=== PATIENT | female | born 1995 | race Caucasian/White ===

== ENCOUNTER 2017-12-05 09:16 | Emergency (ER) | payer BC ==
[~2017-12-05] VITALS: Ht 170.2 cm; Wt 113.4 kg
[~2017-12-05 09:16] MED LIST: HYDR-552 PO; LORA-258 PO; NORE1PAT7 TD; RIVA15TA PO
[2017-12-05] MEDS ORDERED: RIVA10TA PO (09:32)
--- NOTE | 2017-12-05 09:40 | NUR ---
PT.WAS SEEN BY DO:MEAGAN,FAMILY MEMBER AT BEDSIDE.
[2017-12-05 09:54] LABS: BASOPHILS % (AUTO) 0.2 % (0.0-2.0); EOSINOPHILS # (AUTO) 0.2 K/uL (0.0-0.7); EOSINOPHILS % (AUTO) 1.6 % (0.0-7.0); HEMATOCRIT 41.5 % (31.2-41.9); HEMOGLOBIN 13.8 g/dL (10.9-14.3); LYMPHOCYTES # (AUTO) 2.3 K/uL (20.0-40.0); LYMPHOCYTES % (AUTO) 24.1 % (20.5-51.5); MEAN CORPUSCULAR HEMOGLOBIN 27.8 uug (24.7-32.8); MEAN CORPUSCULAR HGB CONC 33 g/dL (32.3-35.6); MEAN CORPUSCULAR VOLUME 83.8 fL (75.5-95.3); MONOCYTES # (AUTO) 0.4 K/uL (2.0-10.0); MONOCYTES % (AUTO) 4.4 % (0.0-11.0); NEUTROPHILS # (AUTO) 6.6 K/uL (1.8-8.9); NEUTROPHILS % (AUTO) 69.7 % (38.5-71.5); PLATELET COUNT (AUTO) 235 K/uL (179-408); RED BLOOD CELL COUNT(AUTO) 4.95 MIL/uL (3.63-4.92); WHITE BLOOD COUNT (AUTO) 9.4 K/uL (3.8-11.8)
[2017-12-05 10:01] LABS: CREATININE 0.7 mg/dL (0.6-1.3); POTASSIUM 4.7 mmol/L (3.5-5.1)
[2017-12-05 10:12] LABS: BILIRUBIN,TOTAL 0.2 mg/dL (0.2-1.0); TOTAL PROTEIN, SERUM 8.6 g/dL (6.4-8.2)
[2017-12-05 10:36] VITALS: BP 112/68
== END 2017-12-05 10:40 | disposition home or self-care (01) ==
LOC: ER 09:16
DX: K92.0 Hematemesis (principal); E03.9 Hypothyroidism, unspecified; H69.90 Unspecified Eustachian tube disorder, unspecified ear; F17.200 Nicotine dependence, unspecified, uncomplicated
CPT/HCPCS: 36415; 85025; A4663

== ENCOUNTER 2019-11-18 22:55 | Inpatient (IN) | payer BC ==
[~2019-11-18] VITALS: Ht 170.2 cm; Wt 104.3 kg
[~2019-11-18 22:55] MED LIST changes: -HYDR-552 PO; -NORE1PAT7 TD; +RIVA10TA PO; -RIVA15TA PO
[2019-11-18] MEDS ORDERED: LEVO75TA7 PO (23:03)
[2019-11-18] MEDS ORDERED: ONDANSETRON 4 MG/2 ML VIAL IV ONE ×2 (23:15→23:45)
[2019-11-18] MEDS ORDERED: ONDANSETRON 4 MG/2 ML VIAL ONE ×2 (23:18→23:39)
[2019-11-18 23:37] LABS: BASOPHILS # (AUTO) 0.1 K/uL (0.0-8.0); BASOPHILS % (AUTO) 0.4 % (0.0-2.0); EOSINOPHILS # (AUTO) 0.2 K/uL (0.0-0.7); EOSINOPHILS % (AUTO) 1.3 % (0.0-7.0); HEMATOCRIT 40.3 % (31.2-41.9); HEMOGLOBIN 13.2 g/dL (10.9-14.3); LYMPHOCYTES # (AUTO) 2.7 K/uL (20.0-40.0); LYMPHOCYTES % (AUTO) 20.7 % (20.5-51.5); MEAN CORPUSCULAR HEMOGLOBIN 28.2 uug (24.7-32.8); MEAN CORPUSCULAR HGB CONC 33 g/dL (32.3-35.6); MEAN CORPUSCULAR VOLUME 85.7 fL (75.5-95.3); MONOCYTES # (AUTO) 0.7 K/uL (2.0-10.0); NEUTROPHILS # (AUTO) 9.5 K/uL (1.8-8.9); NEUTROPHILS % (AUTO) 72.6 % (38.5-71.5); PLATELET COUNT (AUTO) 218 K/uL (179-408); WHITE BLOOD COUNT (AUTO) 13.1 K/uL (3.8-11.8)
[2019-11-18] MEDS ORDERED: HYDROMORPHONE 1 MG/1 ML DISP.SYRIN ONE (23:39)
[2019-11-18 23:41] LABS: *BILIRUBIN,URIN NEGATIVE (NEGATIVE); *CLARITY,URINE CLEAR (CLEAR); *COLOR,URINE YELLOW (YELLOW); *KETONES,URINE NEGATIVE (NEGATIVE); *UROBILINOGEN,URINE 0.2 E.U./dl (NORMAL); LEUKOCYTE ESTERASE ,URINE NEGATIVE (NEGATIVE); NITRITE, URINE NEGATIVE (NEGATIVE); PH,URINE 6.5 (5.0-8.0); UGLUCOSE NEGATIVE (NEGATIVE)
[2019-11-18 23:43] LABS: *BLOOD, URINE TRACE (NEGATIVE)
[2019-11-18] MEDS ORDERED: HYDROMORPHONE 1 MG/1 ML DISP.SYRIN IV ONE (23:45)
[2019-11-18 23:47] LABS: CREATININE 0.7 mg/dL (0.6-1.3); POTASSIUM 3.7 mmol/L (3.5-5.1)
[2019-11-18 23:48] LABS: *URINE HCG, QUAL NEGATIVE (NEGATIVE); BACTERIA,URINE FEW /HPF (NONE SEEN); SQUAMOUS EPITHELIAL CELL,UR MODERATE /HPF (NONE SEEN); WBC,URINE 0-3 /HPF (0-3)
[2019-11-18 23:53] LABS: BILIRUBIN,DIRECT 0.1 mg/dL (0.0-0.2); BILIRUBIN,TOTAL 0.2 mg/dL (0.2-1.0); TOTAL PROTEIN, SERUM 7.8 g/dL (6.4-8.2)
[2019-11-19] VITALS (15 sets, daily range): BP systolic 104–135; BP diastolic 54–87
--- NOTE | 2019-11-19 00:15 | NUR ---
back from ct via wheelchair +r hand dorsal g20 intact RA NAD
--- NOTE | 2019-11-19 00:48 | NUR ---
RADIOLOGY CALL [facility]
--- NOTE | 2019-11-19 00:51 | NUR ---
DR GARNICA ON THE PHONE FOR SURGICAL CONSULT WITH LEV
--- NOTE | 2019-11-19 00:54 | NUR ---
PRABHJOT called, awaiting call back from Steven Brannon, [employer]KER
[2019-11-19] MEDS ORDERED: CEFTRIAXONE /D5W 50ML IVPB **ER PYXIS IV ONE (00:57)
[2019-11-19] MEDS ORDERED: METRONIDAZOLE 500 MG/NS 100ML 100 ML IV ONE ×2 (00:57→03:59)
[2019-11-19] MEDS ORDERED: HYDROMORPHONE 1 MG/1 ML DISP.SYRIN ONE ×2 (00:57→18:58)
[2019-11-19] MEDS ORDERED: HYDROMORPHONE 1 MG/1 ML DISP.SYRIN IV ONE (01:00)
[2019-11-19] MEDS ORDERED: ONDANSETRON 4 MG/2 ML VIAL IV ONE ×2 (01:00→11:11)
[2019-11-19] MEDS ORDERED: LORAZEPAM 2 MG/1 ML VIAL IV ONE (01:00)
[2019-11-19] MEDS ORDERED: METRONIDAZOLE 500 MG/NS 100 ML PIGGYBACK IV ONE (01:00)
[2019-11-19] MEDS ORDERED: CEFTRIAXONE 1 G in IV DEXTROSE 5% 50 ML IV ONE (01:00)
[2019-11-19] MEDS ORDERED: LORAZEPAM 2 MG/1 ML VIAL ONE (01:03)
[2019-11-19] MEDS ORDERED: IV NS 1000 ML 1,000 ML IV PRN (01:07)
[2019-11-19] MEDS ORDERED: Z GUARD REMEDY PASTE 57 GM TUBE TOP PRN (01:15)
[2019-11-19] MEDS ORDERED: MAGNESIUM HYDROXIDE 30 ML LIQUID UDC PO PRN (01:15)
[2019-11-19] MEDS ORDERED: ACETAMINOPHEN 325 MG TABLET PO PRN (01:15)
--- NOTE | 2019-11-19 01:28 | NUR ---
PT OK TO ADMIT TO M/S DX:APPENDECITIS UNDER [place] ARZATE SURGICAL CONSULT: DANIKA DO
--- NOTE | 2019-11-19 01:46 | NUR ---
HAND OFF AND SBAR GIVEN TO BULL AL
--- NOTE | 2019-11-19 02:15 | NUR ---
TRANSPORTED TO M/S ROOM 317
--- NOTE | 2019-11-19 02:20 | NUR ---
PATIENT IS A 24 YEAR OLD FEMALE ADMITTED TO MED/SURG FROM EMERGENCY DEPT. WITH DIAGNOSIS OF APPENDICITIS. PATIENT ACCOMPANIED BY BOYFRIEND. PATIENT STABLE. VITAL SIGNS WITHIN NORMAL LIMITS. NO SHORTNESS OF BREATH OR DISTRESS NOTED. PATIENT DOES NOT CURRENTLY COMPLAIN OF PAIN. IV SITE IN RIGHT AC 18G AND IV IN RIGHT HAND 20G FLUSHING, PATENT, AND INTACT. ADMISSION ORDERS CARRIED OUT. BELONGINGS LIST COMPLETED. SAFETY PRECAUTIONS IN PLACE. PATIENT IS NPO.
[2019-11-19] MEDS ORDERED: MORPHINE SULFATE 2 MG/1 ML DISP.SYRIN ONE ×2 (04:08→06:31)
[2019-11-19] MEDS: MORPHINE SULFATE 2 MG/1 ML DISP.SYRIN IV PRN ×4 (04:17→12:36)
[2019-11-19] MEDS: METRONIDAZOLE 500 MG/NS 100ML 500 MG in PREMIXED 1 EACH IV SCH ×3 (06:03→22:37)
--- NOTE | 2019-11-19 06:33 | NUR ---
NO ACUTE CHANGE IN PATIENT CONDITION. COMPLAINED OF PAIN AND MEDICATED APPROPRIATELY.
[2019-11-19 06:44] LABS: BASOPHILS % (AUTO) 0.2 % (0.0-2.0); EOSINOPHILS # (AUTO) 0.1 K/uL (0.0-0.7); EOSINOPHILS % (AUTO) 1.3 % (0.0-7.0); HEMATOCRIT 40.5 % (31.2-41.9); LYMPHOCYTES # (AUTO) 2.5 K/uL (20.0-40.0); LYMPHOCYTES % (AUTO) 23.3 % (20.5-51.5); MEAN CORPUSCULAR HEMOGLOBIN 28.3 uug (24.7-32.8); MEAN CORPUSCULAR HGB CONC 32 g/dL (32.3-35.6); MEAN CORPUSCULAR VOLUME 87.8 fL (75.5-95.3); MONOCYTES # (AUTO) 0.7 K/uL (2.0-10.0); MONOCYTES % (AUTO) 6.3 % (0.0-11.0); NEUTROPHILS # (AUTO) 7.4 K/uL (1.8-8.9); NEUTROPHILS % (AUTO) 68.9 % (38.5-71.5); PLATELET COUNT (AUTO) 190 K/uL (179-408); RED BLOOD CELL COUNT(AUTO) 4.61 MIL/uL (3.63-4.92); WHITE BLOOD COUNT (AUTO) 10.8 K/uL (3.8-11.8)
[2019-11-19 07:01] LABS: THYROID STIMULATING HORMONE 16.215 mIU/mL (0.358-3.740)
[2019-11-19 07:11] LABS: CREATININE 0.7 mg/dL (0.6-1.3); MAGNESIUM 2.1 mg/dL (1.8-2.4); PHOSPHOROUS 4.7 mg/dL (2.5-4.9)
[2019-11-19] MEDS ORDERED: LIDOCAINE-MPF 2% 5 ML VIAL MC ONE (11:11)
[2019-11-19] MEDS ORDERED: PROPOFOL 200 MG/20 ML BOTTLE IV ONE (11:11)
[2019-11-19] MEDS ORDERED: DEXAMETHASONE SOD PHOSPHATE 4 MG INJ IV ONE (11:11)
[2019-11-19] MEDS ORDERED: NEOSTIGMINE METHYLSULFATE 10 MG/10 ML VIAL IV ONE (11:11)
[2019-11-19] MEDS ORDERED: SUCCINYLCHOLINE CHLORIDE 200 MG/10 ML VIAL MC ONE (11:11)
[2019-11-19] MEDS ORDERED: CEFAZOLIN 1 G VIAL MC ONE (11:11)
[2019-11-19] MEDS ORDERED: GLYCOPYRROLATE 0.2 MG/ML VIAL MC ONE (11:11)
[2019-11-19] MEDS ORDERED: SEVOFLURANE 250 ML BOTTLE IH ONE (11:11)
[2019-11-19] MEDS ORDERED: BUPIVACAINE/EPI PF 0.25% 30 ML VIAL ONE (15:47)
--- NOTE | 2019-11-19 16:01 | NUR ---
pt went to surgery via bed in stable condition
[2019-11-19] MEDS ORDERED: MIDAZOLAM HCL 2 MG/2 ML VIAL ONE (16:19)
[2019-11-19] MEDS ORDERED: HYDROMORPHONE 2 MG/1 ML DISP.SYRIN ONE (16:19)
[2019-11-19] MEDS ORDERED: ROCURONIUM BROMIDE 50 MG/5 ML VIAL ONE (16:19)
[2019-11-19] MEDS ORDERED: FENTANYL CITRATE 100 MCG/2 ML AMPUL ONE (18:04)
--- NOTE | 2019-11-19 19:40 | NUR ---
PATIENT BACK ON MED/SURG FLOOR FROM SURGERY. REPORT RECEIVED FROM PACU NURSE. PATIENT'S VITAL SIGNS STABLE. SCD PUMPS ON PATIENT. O2 VIA NASAL CANNULA 3L ATTACHED TO PATIENT. DRESSING DRY, CLEAN, AND INTACT. WILL CONTINUE TO MONITOR PATIENT. ORDERS RECEIVED FROM DR. GARNICA.
[2019-11-19] MEDS ORDERED: HYDROMORPHONE 1 MG/1 ML DISP.SYRIN IV PRN (21:00)
[2019-11-19] MEDS: IV D5/ 0.9% NACL 1,000 ML IV PRN (22:37)
--- NOTE | 2019-11-19 23:19 | NUR ---
CONTACTED DR. LIDN REGARDING PATIENT'S SEVERE PAIN DESPITE GIVEN DILAUDID 1MG AT 2100. WAS GIVEN ORDER TO INCREASE DILAUDID DOSE TO EVERY THREE HOURS AND TO GIVE ONE DOSE NOW.
[2019-11-19] MEDS: HYDROMORPHONE 1 MG/1 ML DISP.SYRIN IV PRN (23:30)
[2019-11-20 00:45] VITALS: BP 93/56
[2019-11-20] MEDS: CEFTRIAXONE 1 G in IV DEXTROSE 5% 50 ML IV SCH (00:50)
[2019-11-20 01:45] VITALS: BP 110/56
[2019-11-20 02:45] VITALS: BP 106/77
[2019-11-20] MEDS: HYDROMORPHONE 1 MG/1 ML DISP.SYRIN IV PRN ×6 (03:38→20:46)
[2019-11-20 04:00] VITALS: BP 105/79
[2019-11-20] MEDS: METRONIDAZOLE 500 MG/NS 100ML 500 MG in PREMIXED 1 EACH IV SCH ×3 (05:14→21:08)
[2019-11-20 06:08] LABS: CREATININE 0.6 mg/dL (0.6-1.3); POTASSIUM 4.2 mmol/L (3.5-5.1)
--- NOTE | 2019-11-20 06:17 | NUR ---
PATIENT SLEPT INTERMITTENTLY THROUGHOUT THE NIGHT. MANAGED PAIN APPROPRIATELY WITH PRN PAIN MEDICATIONS. VITAL SIGNS STABLE THROUGHOUT SHIFT. INCENTIVE SPIROMETER ENFORCED. PATIENT ABLE TO TOLERATE AMBULATION TO RESTROOM. NO ACUTE CHANGE IN PATIENT CONDITION. WILL ENDORSE ACCORDINGLY.
[2019-11-20 06:45] LABS: BASOPHILS % (AUTO) 0.1 % (0.0-2.0); HEMATOCRIT 37.5 % (31.2-41.9); HEMOGLOBIN 12.1 g/dL (10.9-14.3); LYMPHOCYTES % (AUTO) 7.5 % (20.5-51.5); MEAN CORPUSCULAR HEMOGLOBIN 28.2 uug (24.7-32.8); MEAN CORPUSCULAR HGB CONC 32 g/dL (32.3-35.6); MEAN CORPUSCULAR VOLUME 87.2 fL (75.5-95.3); MONOCYTES # (AUTO) 0.8 K/uL (2.0-10.0); MONOCYTES % (AUTO) 5.7 % (0.0-11.0); NEUTROPHILS # (AUTO) 11.8 K/uL (1.8-8.9); NEUTROPHILS % (AUTO) 86.7 % (38.5-71.5); PLATELET COUNT (AUTO) 191 K/uL (179-408); WHITE BLOOD COUNT (AUTO) 13.7 K/uL (3.8-11.8)
--- NOTE | 2019-11-20 07:25 | NUR ---
Received report from shift foreman nurse, patient in bed awake, No distress noted at this time, bed in low position, side rials up x2. Call light in reach. All needs met. Patient reports not having any stool or passing gas.
[2019-11-20] MEDS: ONDANSETRON 4 MG/2 ML VIAL IV PRN ×2 (07:43→20:47)
[2019-11-20 11:03] VITALS: BP 96/55
[2019-11-20 15:18] VITALS: BP 102/54
[2019-11-20] MEDS: RIVAROXABAN 10 MG TABLET PO SCH (17:02)
--- NOTE | 2019-11-20 17:59 | NUR ---
Patient has been cooperative with care. Patient required pain medication throughout shift. patient has been ambulating to restroom with standby assist. All needs met. IV fluids infusing. Patient tolerating clear liquid diet.
[2019-11-20] MEDS: IV D5/ 0.9% NACL 1,000 ML IV PRN (18:17)
--- NOTE | 2019-11-20 19:00 | NUR ---
RECEIVED REPORT FROM AM NURSE. RECEIVED PATIENT IN BED, WITH FATHER AT BEDSIDE. NO C/O PAIN. DRESSING ON ABD INTACT,NO BLEEDING NOR SWELLING AROUND DRESSING NOTED. STILL NO GAS/NO BM, KEPT ON CLEAR LIQUID DIET. PATIENT SLEEPING AT THIS TIME. WILL CONTINUE TO MONITOR.
[2019-11-20] MEDS: HYDROCODONE/APAP 5-325MG TABLET PO PRN (21:25)
[2019-11-20] MEDS: ZOLPIDEM 5 MG TABLET PO PRN (21:26)
[2019-11-21] MEDS: CEFTRIAXONE 1 G in IV DEXTROSE 5% 50 ML IV SCH ×2 (00:40→23:58)
[2019-11-21] MEDS: HYDROMORPHONE 1 MG/1 ML DISP.SYRIN IV PRN ×5 (01:39→18:36)
[2019-11-21 06:06] VITALS: BP 99/67
[2019-11-21] MEDS: METRONIDAZOLE 500 MG/NS 100ML 500 MG in PREMIXED 1 EACH IV SCH ×3 (06:15→21:27)
[2019-11-21 06:26] LABS: BASOPHILS % (AUTO) 0.3 % (0.0-2.0); EOSINOPHILS # (AUTO) 0.1 K/uL (0.0-0.7); EOSINOPHILS % (AUTO) 0.9 % (0.0-7.0); HEMOGLOBIN 12.8 g/dL (10.9-14.3); LYMPHOCYTES % (AUTO) 29.6 % (20.5-51.5); MEAN CORPUSCULAR HEMOGLOBIN 28.2 uug (24.7-32.8); MEAN CORPUSCULAR HGB CONC 33 g/dL (32.3-35.6); MEAN CORPUSCULAR VOLUME 85.9 fL (75.5-95.3); MONOCYTES # (AUTO) 0.7 K/uL (2.0-10.0); MONOCYTES % (AUTO) 6.8 % (0.0-11.0); NEUTROPHILS # (AUTO) 6.3 K/uL (1.8-8.9); NEUTROPHILS % (AUTO) 62.4 % (38.5-71.5); PLATELET COUNT (AUTO) 247 K/uL (179-408); RED BLOOD CELL COUNT(AUTO) 4.54 MIL/uL (3.63-4.92); WHITE BLOOD COUNT (AUTO) 10.1 K/uL (3.8-11.8)
[2019-11-21 06:38] LABS: CREATININE 0.7 mg/dL (0.6-1.3); MAGNESIUM 1.9 mg/dL (1.8-2.4); PHOSPHOROUS 2.8 mg/dL (2.5-4.9); POTASSIUM 3.6 mmol/L (3.5-5.1)
--- NOTE | 2019-11-21 08:00 | NUR ---
Received report from CHARGE NURSE, patient in bed awake, No distress noted at this time, bed in low position, side rials up x2. Call light in reach. All needs met. Patient reports not having any stool or passing gas.
[2019-11-21] MEDS: IV D5/ 0.9% NACL 1,000 ML IV PRN (10:16)
[2019-11-21 12:33] VITALS: BP 113/71
[2019-11-21 15:41] VITALS: BP 114/63
[2019-11-21] MEDS: RIVAROXABAN 10 MG TABLET PO SCH (17:35)
--- NOTE | 2019-11-21 18:21 | NUR ---
PATIENT HAS BEEN COOPERATIVE WITH CARE, USING INCENTIVE SPIROMETER, AND WALKING HOURLY. ALL NEEDS MET THROUGHOUT SHIFT. PATIENT CONTINUES TO REQUEST DILAUDID FOR PAIN. BED IN LOW POSITION, SIDE RAILS UP X2. CALL LIGHT IN REACH.
--- NOTE | 2019-11-21 20:00 | NUR ---
Received patient laying in bed. A/O x 3. Family at bedside. Denies pain or SOB. IVF on the right AC patent and intact. Patient reports not being able to pass gas. Encourage her to walk in which she has been doing so. Incision covered with ABD on the right lower quadrant is clean, dry and intact. Akash hose on bilateral legs in place. Safety initiated. Call light within reach. Will continue to monitor.
[2019-11-21] MEDS: ONDANSETRON 4 MG/2 ML VIAL IV PRN (20:12)
--- NOTE | 2019-11-21 20:12 | NUR ---
patient c/o nausea, Zofran given, will continue to monitor.
[2019-11-21 20:15] VITALS: BP 94/60
[2019-11-22] MEDS: ZOLPIDEM 5 MG TABLET PO PRN (00:18)
--- NOTE | 2019-11-22 00:22 | NUR ---
Patient reports that she was able to pass gas. Will continue to monitor.
[2019-11-22 04:00] VITALS: BP 113/65
[2019-11-22] MEDS: METRONIDAZOLE 500 MG/NS 100ML 500 MG in PREMIXED 1 EACH IV SCH ×3 (05:13→21:45)
[2019-11-22] MEDS: HYDROMORPHONE 1 MG/1 ML DISP.SYRIN IV PRN ×2 (05:14→09:24)
[2019-11-22] MEDS: IV D5/ 0.9% NACL 1,000 ML IV PRN ×2 (05:18→21:50)
--- NOTE | 2019-11-22 05:30 | NUR ---
PATIENT AWAKE IN BED. C/O PAIN IN ABDOMEN. PATIENT GIVEN NORCO 1 TAB PO PRN FOR PAIN. VSS. IVF INFUSING WELL. CALL LIGHT IN REACH. ALL NEEDS ATTENDED. WILL CONTINUE TO MONITOR AND ASSESS. Addendum: 11/23/19 at 0542 by TISHA GRECO LVN WRONG DATE. ERROR.
--- NOTE | 2019-11-22 05:43 | NUR ---
Patient slept t/o shift. C/O pain, medication given, stated relief. Patient states that she was able to pass gas. Vital signs stable. ABD pad in the right lower quadrant, clean dry and intact. Patient ambulated 1x at my shift. Safety and comfort measures maintained t/o shift. All meds given as ordered. All needs met.
[2019-11-22 06:22] LABS: BASOPHILS % (AUTO) 0.3 % (0.0-2.0); EOSINOPHILS # (AUTO) 0.2 K/uL (0.0-0.7); EOSINOPHILS % (AUTO) 2.5 % (0.0-7.0); HEMATOCRIT 36.2 % (31.2-41.9); LYMPHOCYTES # (AUTO) 2.2 K/uL (20.0-40.0); LYMPHOCYTES % (AUTO) 29.6 % (20.5-51.5); MEAN CORPUSCULAR HEMOGLOBIN 28.6 uug (24.7-32.8); MEAN CORPUSCULAR HGB CONC 33 g/dL (32.3-35.6); MEAN CORPUSCULAR VOLUME 86.2 fL (75.5-95.3); MONOCYTES # (AUTO) 0.5 K/uL (2.0-10.0); MONOCYTES % (AUTO) 7.1 % (0.0-11.0); NEUTROPHILS # (AUTO) 4.4 K/uL (1.8-8.9); NEUTROPHILS % (AUTO) 60.5 % (38.5-71.5); PLATELET COUNT (AUTO) 196 K/uL (179-408); WHITE BLOOD COUNT (AUTO) 7.3 K/uL (3.8-11.8)
[2019-11-22 06:39] LABS: CREATININE 0.6 mg/dL (0.6-1.3); MAGNESIUM 1.8 mg/dL (1.8-2.4); PHOSPHOROUS 3.7 mg/dL (2.5-4.9); POTASSIUM 3.6 mmol/L (3.5-5.1)
--- NOTE | 2019-11-22 08:00 | NUR ---
Received patient asleep in bed, easily arousable. AAOx4. Verbalizes pain is tolerable at this time. IV intact and patent. Safety measures implemented. Call light within reach. Will continue to monitor.
[2019-11-22] MEDS ORDERED: BISACODYL 5 MG TABLET.DR PO ONE (08:45)
[2019-11-22] MEDS: ONDANSETRON 4 MG/2 ML VIAL IV PRN (10:23)
[2019-11-22 11:30] VITALS: BP 114/75
[2019-11-22] MEDS: HYDROCODONE/APAP 5-325MG TABLET PO PRN ×3 (13:43→21:51)
[2019-11-22 16:09] VITALS: BP 127/77
[2019-11-22] MEDS: METOCLOPRAMIDE HCL 10 MG/2 ML VIAL IV SCH ×2 (17:45→23:20)
[2019-11-22] MEDS: RIVAROXABAN 10 MG TABLET PO SCH (17:46)
--- NOTE | 2019-11-22 18:09 | NUR ---
Notified MD Guillermo regarding patient bowel movement. Advanced to soft diet; patient tolerated. Complaining of abd pain; medicated appropriately with PRN Dilaudid and PRN [place]. Will endorse care accordingly.
--- NOTE | 2019-11-22 20:00 | NUR ---
RECEIVED PATIENT AWAKE IN BED WITH BOYFRIEND AT BEDSIDE. NO C/O PAIN OR DISCOMFORT AT THIS TIME. NO RESP. DISTRESS NOTED. VSS. IVF INFUSING WELL TO LEFT AC. DRESSINGS NOTED TO ABDOMEN CLEAN, DRY AND INTACT. CALL LIGHT IN REACH. ALL NEEDS ATTENDED. WILL CONTINUE TO MONITOR AND ASSESS.
[2019-11-22 20:05] VITALS: BP 96/55
[2019-11-22] MEDS: CEFTRIAXONE 1 G in IV DEXTROSE 5% 50 ML IV SCH (23:28)
[2019-11-23] MEDS: HYDROCODONE/APAP 5-325MG TABLET PO PRN (05:15)
[2019-11-23] MEDS: METOCLOPRAMIDE HCL 10 MG/2 ML VIAL IV SCH ×2 (05:35→11:06)
[2019-11-23] MEDS: METRONIDAZOLE 500 MG/NS 100ML 500 MG in PREMIXED 1 EACH IV SCH (05:35)
--- NOTE | 2019-11-23 05:42 | NUR ---
PATIENT AWAKE IN BED. C/O PAIN IN ABDOMEN. PATIENT GIVEN NORCO 1 TAB PO PRN FOR PAIN. VSS. IVF INFUSING WELL. CALL LIGHT IN REACH. ALL NEEDS ATTENDED. WILL CONTINUE TO MONITOR AND ASSESS.
[2019-11-23 05:43] VITALS: BP 109/69
[2019-11-23 07:01] LABS: BASOPHILS % (AUTO) 0.3 % (0.0-2.0); EOSINOPHILS # (AUTO) 0.2 K/uL (0.0-0.7); EOSINOPHILS % (AUTO) 2.7 % (0.0-7.0); HEMATOCRIT 37.8 % (31.2-41.9); HEMOGLOBIN 12.4 g/dL (10.9-14.3); LYMPHOCYTES % (AUTO) 25.4 % (20.5-51.5); MEAN CORPUSCULAR HEMOGLOBIN 28.4 uug (24.7-32.8); MEAN CORPUSCULAR HGB CONC 33 g/dL (32.3-35.6); MEAN CORPUSCULAR VOLUME 86.5 fL (75.5-95.3); MONOCYTES # (AUTO) 0.5 K/uL (2.0-10.0); MONOCYTES % (AUTO) 6.1 % (0.0-11.0); NEUTROPHILS % (AUTO) 65.5 % (38.5-71.5); PLATELET COUNT (AUTO) 239 K/uL (179-408); RED BLOOD CELL COUNT(AUTO) 4.37 MIL/uL (3.63-4.92); WHITE BLOOD COUNT (AUTO) 7.7 K/uL (3.8-11.8)
[2019-11-23 07:24] LABS: CREATININE 0.7 mg/dL (0.6-1.3); MAGNESIUM 1.7 mg/dL (1.8-2.4); PHOSPHOROUS 3.7 mg/dL (2.5-4.9); POTASSIUM 3.5 mmol/L (3.5-5.1)
--- NOTE | 2019-11-23 08:30 | NUR ---
Received patient awake in bed. AAOx4. Complaining of abd pain of 8/10; will medicate with PRN Morphine 4mg IVP appropriately. IV on L AC intact and patent with IVF running. In no acute distress. Safety measures implemented. Call light within reach. Will continue to monitor.
[2019-11-23] MEDS ORDERED: HYDR-4384 PO (09:21)
[2019-11-23] MEDS: MAGNESIUM SULFATE/D5W 100 ML IV SCH ×2 (09:35→10:36)
[2019-11-23 12:00] VITALS: BP 103/55
[2019-11-23] MEDS: ONDANSETRON 4 MG/2 ML VIAL IV PRN (12:25)
== END 2019-11-23 13:45 | disposition home or self-care (01) | DRG 342 ==
LOC: ER 22:55 → MEDSURG3 11-19 01:51
PROVIDERS: ADMIT Nurse Practitioner Acute Care; ATTEND Internal Medicine
PROC: 0DTJ0ZZ Resection of Appendix, Open Approach (ICD-10-PCS; principal; 2019-11-19)
PROC: 0WJG4ZZ Inspection of Peritoneal Cavity, Percutaneous Endoscopic Approach (ICD-10-PCS; principal; 2019-11-19)
DX: K35.30 Acute appendicitis with localized peritonitis, without perforation or gangrene (principal); K56.7 Ileus, unspecified; E66.9 Obesity, unspecified; E03.9 Hypothyroidism, unspecified; Z86.711 Personal history of pulmonary embolism; Z79.01 Long term (current) use of anticoagulants; Z79.890 Hormone replacement therapy; Z68.36 Body mass index [BMI] 36.0-36.9, adult; Z91.14 Patient's other noncompliance with medication regimen; Z98.890 Other specified postprocedural states
CPT/HCPCS: 36415; 74018; 83690; 83735; 84100; 84443; 84703; 85025; 85730; 86850; 86900; 86901; A4663; G0378; J0330; J0690; J0696; J1100; J1170; J2060; J2250; J2270; J2405; J2710; J2765; J3010; J3475; J3490; J7030; J7040; J7042; J7060